=== PATIENT | female | born 1950 | race Hispanic/Latino ===

== ENCOUNTER 2020-12-01 06:26 | Outpatient (CLI) | payer MEDICARE ==
[2020-12-01] MEDS ORDERED: SODIUM CHLORIDE 0.9% 1000 ML 1,000 ML IV SCH (07:00)
[2020-12-01] MEDS ORDERED: BENZOCAINE 20% TOP SPRAY 0.5 ML UNIT DOSE MM NR (07:00)
[2020-12-01 07:19] LABS: Basophils % (Auto) 0.4 % (0.0-1.8); Eosinophils # (Auto) 0.2 K/mm3 (0.0-0.4); Eosinophils % (Auto) 2.2 % (0.0-4.3); Hematocrit 39.6 % (30.3-42.9); Hemoglobin 13.5 gm/dl (10.1-14.3); Lymphocytes # (Auto) 1.7 K/mm3 (1.2-5.4); Lymphocytes % (Auto) 18.1 % (13.4-35.0); Mean Corpuscular HGB Conc 34 % (30-34); Mean Corpuscular Volume 97 fl (79-97); Monocytes # (Auto) 0.9 K/mm3 (0.0-0.8); Monocytes % (Auto) 9.6 % (0.0-7.3); Platelet Count 247 K/mm3 (140-440); Red Blood Count 4.09 M/mm3 (3.65-5.03); Red Cell Distribution Width 13.6 % (13.2-15.2)
[2020-12-01 07:30] LABS: BUN/Creatinine Ratio 24; Blood Urea Nitrogen 22 mg/dL (7-17); Calcium 10.4 mg/dL (8.4-10.2); Hemolysis Index 0; INR 1.85 (0.87-1.13)
[2020-12-01 07:31] LABS: Partial Thromboplastin Time 50.4 Sec. (24.2-36.6)
--- NOTE | 2020-12-01 08:33 | Anesthesia Consultation ---
Anesthesia Consult and Med Hx Date of service: 12/01/20 - Airway Anesthetic Teeth Evaluation: Good ROM Head & Neck: Adequate Mental/Hyoid Distance: Adequate Mallampati Class: Class I Intubation Access Assessment: Good - Pulmonary Exam CTA: Yes - Cardiac Exam Cardiac Exam: No Murmur (irregular rate and rhythm) - Pre-Operative Health Status ASA Pre-Surgery Classification: ASA3 Proposed Anesthetic Plan: MAC - Pulmonary Hx Smoking: No Hx Respiratory Symptoms: Yes (bronchiectasis) SOB: Yes Home Oxygen Therapy: No Hx Sleep Apnea: Yes (not yet started on CPAP) - Cardiovascular System Hx Hypertension: No Hx Heart Attack/AMI: No Hx Percutaneous Transluminal Coronary Angioplasty (PTCA): No Hx Cardia Arrhythmia: Yes (a-fib w/ RVR) Hx Pacemaker: No Hx Internal Defibrillator: No Hx Valvular Heart Disease: Yes (MVP) Hx Heart Murmur: Yes Hx Peripheral Vascular Disease: No - Central Nervous System Hx Psychiatric Problems: No - Gastrointestinal Hx Gastroesophageal Reflux Disease: No - Endocrine Hx Renal Disease: No Hx Liver Disease: No Hx Insulin Dependent Diabetes: No Hx Non-Insulin Dependent Diabetes: No Hx Thyroid Disease: No - Other Systems Hx Obesity: No - Additional Comments Anesthesia Medical History Comments: No hx anesthetic complications. Scheduled for ADWOA/cardioversion.
--- NOTE | 2020-12-01 08:33 | Anesthesia Day of Surgery ---
Anesthesia Day of Surgery - Day of Surgery Patient Examined: Yes Patient H&P Reviewed: Yes Patient is NPO: Yes Beta Blockers: Yes (metoprolol 11/30 PM)
[2020-12-01] MEDS ORDERED: DIGOXIN 0.5 MG/2 ML INJ IV ONE ×2 (09:04→09:05)
--- NOTE | 2020-12-01 10:02 | Post Anesthesia Evaluation ---
- Post Anesthesia Evaluation Patient Participated: Yes Airway Patent: Yes Stable Respiratory Function: Yes Nausea/Vomiting: No Temp > 96.8F: Yes Pain Manageable: Yes Adequeate Hydration: Yes Anesthesia Complications: No
[2020-12-01 11:42] VITALS: BP 113/65
[2020-12-01] MEDS ORDERED: propofoL 200 MG/20 ML VIAL IV ONE (13:08)
--- NOTE | 2020-12-02 10:34 | Electrocardiograph Report ---
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
== END 2020-12-01 12:15 | disposition home or self-care (01) ==
LOC: CATHLABREC 06:26
PROVIDERS: ATTEND Internal Medicine
DX: I48.0 Paroxysmal atrial fibrillation (principal); Z20.822 Contact with and (suspected) exposure to COVID-19; I34.0 Nonrheumatic mitral (valve) insufficiency; H40.9 Unspecified glaucoma; I42.9 Cardiomyopathy, unspecified; E78.00 Pure hypercholesterolemia, unspecified; I48.91 Unspecified atrial fibrillation; G47.30 Sleep apnea, unspecified; Z90.49 Acquired absence of other specified parts of digestive tract; Z79.899 Other long term (current) drug therapy; Z98.49 Cataract extraction status, unspecified eye; Z90.710 Acquired absence of both cervix and uterus; Z90.10 Acquired absence of unspecified breast and nipple; Z90.721 Acquired absence of ovaries, unilateral; Z98.890 Other specified postprocedural states; Z83.3 Family history of diabetes mellitus; Z82.49 Family history of ischemic heart disease and other diseases of the circulatory system
CPT/HCPCS: 36415; 80048; 85025; 85610; 85730; 92960; 93005; 93312; 93320; 93325; J1160; J2704; J7030; U0003

== ENCOUNTER 2020-12-06 07:13 | Day surgery (SDC) | payer MEDICARE ==
[2020-12-06] MEDS ORDERED: ASPIRIN EC 325 MG TAB PO ONE (08:22)
[2020-12-06] MEDS: SODIUM CHLORIDE 0.9% 500 ML 500 ML IV SCH ×2 (10:00→11:18)
[2020-12-06] MEDS ORDERED: HEPARIN/NS 5000 UNIT/500ML 1,000 ML IR ONE (10:40)
[2020-12-06] MEDS ORDERED: HEPARIN 10,000 UNITS/10 ML VIAL ONE (10:40)
[2020-12-06] MEDS ORDERED: VERAPAMIL 5 MG/2 ML INJ ONE (10:41)
[2020-12-06] MEDS ORDERED: NITROGLYCERIN SYRINGE 0 ML ONE (10:41)
[2020-12-06] MEDS ORDERED: LIDOCAINE (2%) 20 MG/1 ML VIAL 20 ML MDV INFILTRATI ONE (10:41)
[2020-12-06] MEDS ORDERED: HEPARIN/NS 5000 UNIT/500ML 500 ML IR ONE (10:48)
[2020-12-06] MEDS: MIDAZOLAM 2 MG/2 ML INJ ONE ×2 (10:55→11:05)
[2020-12-06] MEDS: fentaNYL 100 MCG/2 ML INJ ONE ×2 (10:55→11:05)
--- NOTE | 2020-12-06 11:50 | Cardiac Catherization Report ---
CARDIAC CATHETERIZATION REPORT INDICATION FOR PROCEDURE: A 70-year-old female with history of dilated cardiomyopathy and mitral regurgitation and atrial fibrillation, was noted to have severe mitral regurgitation on the transesophageal echocardiogram along with persistent atrial fibrillation, could not cardiovert. Because of this, it was felt mitral regurgitation is causing her symptoms and hence a diagnostic cardiac catheterization being performed for evaluation of any underlying coronary artery disease and evaluation of mitral regurgitation. The patient is aware of the procedure, potential complications and alternatives of therapy available. DESCRIPTION OF PROCEDURE: The patient was brought to the catheterization laboratory in a fasting condition. The right wrist area and forearm were thoroughly cleansed with Betadine solution. The patient was evaluated for moderate sedation and was felt to be appropriate candidate for moderate sedation and received IV Versed and fentanyl. Subsequently, she was monitored with pulse oximetry, EKG and hemodynamic monitoring throughout. Local anesthesia was given in the right wrist area and right radial artery puncture was made using 21-gauge arterial puncture needle. Subsequently, 5-[place] slender sheath was introduced. A 5-[place] multipurpose catheter was used to obtain the angiograms of the right coronary artery. A 5-[place] TIG catheter was used to obtain the angiograms of the left coronary artery and left ventriculogram was performed using 6-[place] pigtail catheter and power injector 45 mL was injected at 15 mL per second. At the end of the procedure, catheter and sheath were removed and radial band was applied for hemostasis. The patient tolerated the procedure well. The patient was monitored for any side effects from moderate sedation starting at 10:55 a.m. and ended at 11:20 a.m. The patient was alert, oriented x 3 with no focal deficits and breathing normally and communicating normally at the end of the procedure. The patient was transferred to the room in stable condition. Following findings were noted. HEMODYNAMICS: 1. Opening aortic pressure 116/56. Left ventricular pressure 109/17. No gradient across the aortic valve. Estimated ejection fraction 35-40%. 2. Left ventriculogram done in PRITCHETT projection using power injector showed mildly dilated left ventricle with mild to moderate hypokinesis. Ejection fraction was felt to be around 35-40% with moderately severe 3+ mitral regurgitation. Right coronary artery arises normally. Angiographically smooth and normal. 3. Left coronary artery arises normally from left coronary cusp. Left coronary artery including left main, LAD and its branches, dominant circumflex artery and its branch are angiographically smooth and normal. FINAL IMPRESSION: 1. Mildly enlarged left ventricle with ejection fraction of 35-40% with moderately severe mitral regurgitation and normal coronary anatomy noted. The patient has underlying chronic atrial fibrillation, difficult to cardiovert. Considering the above, would consider mitral valve repair along with Maze procedure for treatment of atrial fibrillation. The patient tolerated the procedure well. No untoward complications were noted. Cardiothoracic Surgery consultation will be set up as an outpatient. JOB# [id number] PATTY/ZHANNA NUÑEZ
[2020-12-06 14:34] VITALS: BP 115/58
--- NOTE | 2020-12-07 10:24 | Short Stay Summary ---
Short Stay Documentation Date of service: 12/07/20 - History H&P: obtained from office - Allergies and Medications Current Medications: Allergies ibandronate sodium [From Boniva] Allergy (Verified 12/06/20 08:17) Unknown nebivolol [From Bystolic] Allergy (Verified 12/06/20 08:17) Unknown Penicillins Allergy (Verified 12/06/20 08:17) Unknown Home Medications Medication Instructions Recorded Confirmed Last Taken Type Dabigatran [Pradaxa] 150 mg PO BID 12/01/20 12/06/20 12/05/20 08:00 History Digoxin [Lanoxin] 0.125 mg PO DAILY #90 tablet 12/01/20 12/06/20 12/05/20 Rx Icosapent Ethyl [Vascepa] 2 cap PO BID 12/01/20 12/06/20 12/05/20 History Metoprolol [Lopressor TAB] 25 mg PO TID 12/01/20 12/06/20 12/05/20 History Simvastatin 40 mg PO HS 12/01/20 12/06/20 12/05/20 History Spironolactone [Aldactone] 0.5 tab PO BID 12/01/20 12/06/20 12/05/20 History - Brief post op/procedure progress note Date of procedure: 12/07/20 Pre-op diagnosis: MR; dilated CMP; atrial fibrillation Post-op diagnosis: same Procedure: C - see dictated cath report Anesthesia: local Estimated blood loss: none Condition: stable - Disposition Condition at discharge: Good Disposition: DC-01 TO HOME OR SELFCARE - Discharge Diagnoses (1) Mitral regurgitation Status: Chronic (2) Dilated cardiomyopathy Status: Chronic (3) Atrial fibrillation Status: Chronic Short Stay Discharge Plan Diet: low fat, low cholesterol, low salt Wound: open to air, keep clean and dry, change dressing, per your surgeon's advice Follow up with: HUNG CROSS JR, MD [Primary Care Provider] - 7 Days Forms: CardCat PCI D/C Instructions
--- NOTE | 2020-12-07 11:17 | Electrocardiograph Report ---
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
== END 2020-12-06 15:20 | disposition home or self-care (01) ==
LOC: CATHLABREC 07:13
PROVIDERS: ATTEND Internal Medicine
DX: I42.0 Dilated cardiomyopathy (principal); I48.19 Other persistent atrial fibrillation; I34.0 Nonrheumatic mitral (valve) insufficiency; H40.9 Unspecified glaucoma; E78.00 Pure hypercholesterolemia, unspecified; G47.30 Sleep apnea, unspecified; Z90.49 Acquired absence of other specified parts of digestive tract; Z90.710 Acquired absence of both cervix and uterus; Z90.12 Acquired absence of left breast and nipple; Z83.3 Family history of diabetes mellitus; Z98.890 Other specified postprocedural states; Z88.0 Allergy status to penicillin; Z79.899 Other long term (current) drug therapy; Z98.49 Cataract extraction status, unspecified eye; Z82.49 Family history of ischemic heart disease and other diseases of the circulatory system
CPT/HCPCS: 93005; 93458; 99156; 99157; C1769; C1887; C1894; J1644; J2250; J3010; J7040; Q9967